=== PATIENT | male | born 1950 | race Caucasian/White ===

== ENCOUNTER 2021-11-09 06:42 | Emergency (ER) | payer OTHER ==
[2021-11-09 07:09] LABS: BASOPHIL 0.9 % (0-2); EOSINOPHIL 5.6 % (0-7); HCT 43.3 % (42.0-52.0); HGB 13.6 g/dl (13.2-18.0); LYMPHOCYTE 27.1 % (15-48); MCH 27.9 pg (25.0-31.0); MCHC 31.4 g/dL (32.0-36.0); MCV 88.9 fL (78.0-100.0); MPV 10.3 fL (6.0-9.5); NEUTROPHIL 57.2 % (41-80); NRBC 0; PLT 213 K/uL (150-400); RBC 4.87 M/uL (4.70-6.00); RDW 15.1 % (11.5-14.0); WBC 5.6 K/uL (4.0-10.5)
[2021-11-09 07:15] LABS: BILIRUBIN NEGATIVE (NEGATIVE); BLOOD NEGATIVE Ery/uL (NEGATIVE); CLARITY CLEAR (CLEAR); COLOR YELLOW (YELLOW); GLUCOSE (U) NORMAL (NORMAL); LEUKOCYTES TRACE Leu/uL (NEGATIVE); NITRITE NEGATIVE (NEGATIVE); PROTEIN NEGATIVE (NEGATIVE); SPECIFIC GRAVITY 1.015 (1.001-1.030); UROBILINOGEN 0.2 mg/dL (0.2-1.0)
[2021-11-09 07:24] LABS: URINARY WBC RARE
[2021-11-09 07:33] LABS: ALBUMIN 3.8 g/dL (3.4-5.0); BILIRUBIN - TOTAL 0.3 mg/dL (0.2-1.0); BUN/CREAT RATIO (CALC) 22.3 RATIO; CREATININE 1.03 mg/dL (0.67-1.17); GLOBULIN (CALCULATION) 3.5 g/dL; POTASSIUM 3.9 mmol/L (3.5-5.1); TOTAL PROTEIN 7.3 g/dL (6.4-8.2)
[2021-11-09 07:34] LABS: CORONAVIRUS 2019 SARS-COV-2 NEGATIVE (NEGATIVE); INFLUENZA A NAA NEGATIVE (NEGATIVE)
[2021-11-09 07:41] LABS: LACTIC ACID 0.9 mmol/L (0.4-1.9)
== END 2021-11-09 10:46 | disposition home or self-care (01) ==
LOC: FER 06:42
PROVIDERS: Emergency Medicine
DX: J98.4 Other disorders of lung (principal); Z88.8 Allergy status to other drugs, medicaments and biological substances; Z20.822 Contact with and (suspected) exposure to COVID-19
CPT/HCPCS: 36415; 71045; 71275; 80053; 81001; 83605; 84484; 85025; 87040; 93005; Q9967; U0002